=== PATIENT | male | born 1950 | race Two or more races ===

== ENCOUNTER 2023-07-08 13:31 | Inpatient (IN) | payer MEDICARE, OTHER ==
[~2023-07-08] VITALS: Ht 167.6 cm; Wt 58.5 kg
[2023-07-08 14:47] LABS: Basophils # (auto) 0 10 ^3/uL (0-0.2); Basophils % (auto) 0.1 % (0.0-2.0); Eosinophils # (auto) 0 10 ^3/uL (0-0.8); Eosinophils % (auto) 0.3 % (0.0-7.0); Hematocrit 37.5 % (41.0-53.0); Lymphocytes # (auto) 0.7 10 ^3/uL (0.4-5.4); Lymphocytes % (auto) 12.5 % (10.0-50.0); Mean Corpuscular Hemoglobin 29.3 pg (28.0-32.0); Mean Corpuscular Hgb Conc. 34.7 g/dL (32.0-36.0); Mean Corpuscular Volume 84.3 fL (80.0-100.0); Monocytes # (auto) 0.8 10 ^3/uL (0-1.3); Monocytes % (auto) 13.8 % (0.0-12.0); Neutrophils # (auto) 4.3 10 ^3/uL (1.6-8.6); Neutrophils % (auto) 73.3 % (37.0-80.0); Nucleated Red Blood Cells % 0.1 %; Red Blood Cells 4.45 10^6/uL (4.5-5.90); Red Cell Distribution Width 16.2 % (11.8-14.3); White Blood Cell 5.9 10^3/uL (4.4-10.8)
[2023-07-08 15:03] LABS: Albumin 3.1 g/dL (3.4-5.0); BUN/Creatinine Ratio 22.9 (10.0-20.0); Calcium 8.8 mg/dL (8.5-10.1); Potassium 3.3 mmol/L (3.5-5.1)
[2023-07-08 15:06] LABS: Bilirubin, Total 0.7 mg/dL (0.2-1.0); Total Protein 7.4 g/dL (6.4-8.2)
[2023-07-08] MEDS ORDERED: MORPHINE SULFATE 4 MG/ML SYR/VIAL IV ONE (15:30)
[2023-07-08] MEDS ORDERED: SODIUM CHLORIDE 0.9% 500 ML IVB ONE (15:30)
[2023-07-08] MEDS ORDERED: SODIUM CHLORIDE 0.9% 1,000 ML IV ONE (15:30)
[2023-07-08] MEDS ORDERED: METOCLOPRAMIDE HCL 5MG/ml INJ 2ml VIAL IV ONE (15:30)
[2023-07-08 15:57] LABS: INR 1.48 (0.9-1.15); Partial Thromboplastin Time 36.2 SEC (24.5-34.5); Prothrombin Time 15.1 sec (9.3-11.8)
[2023-07-08 16:58] LABS: Magnesium 2.3 mg/dL (1.6-2.6)
[2023-07-08] MEDS ORDERED: METOCLOPRAMIDE HCL 5MG/ml INJ 2ml VIAL IV PRN (17:00)
[2023-07-08] MEDS ORDERED: DOCUSATE SOD 100 MG CAP PO PRN (17:00)
[2023-07-08] MEDS ORDERED: ACETAMINOPHEN 325 MG TAB PO PRN (17:00)
[2023-07-08] MEDS: SODIUM CHLORIDE 0.9% 1,000 ML IV SCH (17:00)
[2023-07-08] MEDS ORDERED: POTASSIUM EFFERVESENT TAB 25 MEQ PO ONE (17:45)
[2023-07-08] MEDS: metroNIDAZOLE 500MG/100ML 100 ML IV SCH (18:05)
[2023-07-08 22:30] VITALS: PULSE 80; RESP 20; O2SAT 100
[2023-07-08] MEDS: MORPHINE SULFATE INJ 2 MG/ml SYRG IV PRN (22:37)
[2023-07-08] MEDS: ONDANSETRON HCL 4 MG/2 ML VIAL IV PRN (22:38)
[2023-07-09] MEDS: metroNIDAZOLE 500MG/100ML 100 ML IV SCH ×4 (03:29→11:23)
[2023-07-09 05:36] LABS: Potassium 3.5 mmol/L (3.5-5.1)
[2023-07-09 05:44] LABS: BUN/Creatinine Ratio 27.4 (10.0-20.0); Bilirubin, Total 0.7 mg/dL (0.2-1.0); Calcium 9.1 mg/dL (8.5-10.1); Magnesium 2.5 mg/dL (1.6-2.6); Total Protein 7.7 g/dL (6.4-8.2)
[2023-07-09 05:45] LABS: Basophils # (auto) 0 10 ^3/uL (0-0.2); Basophils % (auto) 0.1 % (0.0-2.0); Eosinophils # (auto) 0 10 ^3/uL (0-0.8); Eosinophils % (auto) 0.3 % (0.0-7.0); Hematocrit 37.2 % (41.0-53.0); Hemoglobin 12.7 g/dL (13.5-17.5); Lymphocytes # (auto) 0.8 10 ^3/uL (0.4-5.4); Lymphocytes % (auto) 13.9 % (10.0-50.0); Mean Corpuscular Hemoglobin 28.9 pg (28.0-32.0); Monocytes # (auto) 0.8 10 ^3/uL (0-1.3); Monocytes % (auto) 14.9 % (0.0-12.0); Neutrophils % (auto) 70.8 % (37.0-80.0); Nucleated Red Blood Cells % 0.1 %; Red Blood Cells 4.37 10^6/uL (4.5-5.90); Red Cell Distribution Width 16.2 % (11.8-14.3); White Blood Cell 5.6 10^3/uL (4.4-10.8)
[2023-07-09] MEDS: SODIUM CHLORIDE 0.9% 1,000 ML IV SCH (09:47)
[2023-07-09] MEDS ORDERED: cefTRIAXone 1GM/50ML D5W 50 ML IV ONE (12:00)
[2023-07-09] MEDS ORDERED: CAPE1TAB11 PO (15:17)
[2023-07-09 15:52] VITALS: BP 127/60; PULSE 72; RESP 17; TEMP 98.6; O2SAT 95
[2023-07-09] MEDS ORDERED: LOPE1TAB9 PO (16:14)
[2023-07-09] MEDS ORDERED: ZOFR4T PO (16:16)
[2023-07-09 16:17] VITALS: PULSE 73; RESP 14; O2SAT 98
[2023-07-09 20:00] VITALS: BP 133/63; PULSE 72; PULSE 78; PULSE 80; RESP 17; TEMP 97.6; O2SAT 98
[2023-07-09 22:00] VITALS: BP 133/63; PULSE 72; RESP 17; TEMP 97.6; O2SAT 98
[2023-07-10] VITALS (7 sets, daily range): BP systolic 119–145; BP diastolic 60–71; PULSE 66–82; RESP 12–18; TEMP 97.5–99.2; O2SAT 97–100
[2023-07-10] MEDS: SODIUM CHLORIDE 0.9% 1,000 ML IV SCH ×2 (02:20→22:53)
[2023-07-10] MEDS: HYDROcodone-ACET 5/325MG TAB PO PRN (07:49)
[2023-07-10] MEDS: cefTRIAXone 1GM/50ML D5W 50 ML IV SCH (09:17)
[2023-07-10] MEDS: metroNIDAZOLE 500MG/100ML 100 ML IV SCH ×2 (09:18→17:39)
[2023-07-10] MEDS: MORPHINE SULFATE INJ 2 MG/ml SYRG IV PRN (10:20)
[2023-07-10] MEDS: ONDANSETRON HCL 4 MG/2 ML VIAL IV PRN (19:41)
[2023-07-11] MEDS: MORPHINE SULFATE INJ 2 MG/ml SYRG IV PRN (00:29)
[2023-07-11] MEDS: metroNIDAZOLE 500MG/100ML 100 ML IV SCH ×2 (01:37→10:20)
[2023-07-11 05:00] VITALS: BP 121/70; PULSE 90; RESP 18; TEMP 97.8; O2SAT 100
[2023-07-11 07:30] VITALS: PULSE 75; RESP 20
[2023-07-11] MEDS: HYDROcodone-ACET 5/325MG TAB PO PRN (08:53)
[2023-07-11] MEDS: cefTRIAXone 1GM/50ML D5W 50 ML IV SCH (08:53)
[2023-07-11 09:00] VITALS: BP 155/75; PULSE 73; RESP 18; TEMP 97.8; O2SAT 99
[2023-07-11] MEDS: SODIUM CHLORIDE 0.9% 1,000 ML IV SCH (10:35)
[2023-07-11] MEDS ORDERED: MET500T PO (11:00)
[2023-07-11] MEDS ORDERED: LEVO500T91 PO (11:00)
[2023-07-11] MEDS ORDERED: ZOFR4T PO (11:00)
[2023-07-11 12:22] VITALS: TEMP 36.6
[2023-07-11 13:00] VITALS: BP 146/61; PULSE 68; RESP 18; TEMP 98.1; O2SAT 98
== END 2023-07-11 14:45 | disposition home or self-care (01) | DRG 389 ==
LOC: ER 13:31 → TELE 17:08 → TELE-WESTW 07-09 15:57
PROVIDERS: ADMIT Nurse Practitioner Family; ATTEND Family Medicine
DX: K56.7 Ileus, unspecified (principal); E44.0 Moderate protein-calorie malnutrition; R64 Cachexia; K52.9 Noninfective gastroenteritis and colitis, unspecified; K57.30 Diverticulosis of large intestine without perforation or abscess without bleeding; K80.20 Calculus of gallbladder without cholecystitis without obstruction; E87.6 Hypokalemia; E86.0 Dehydration; T45.1X5A Adverse effect of antineoplastic and immunosuppressive drugs, initial encounter; K76.9 Liver disease, unspecified; Z85.038 Personal history of other malignant neoplasm of large intestine; Z68.20 Body mass index [BMI] 20.0-20.9, adult; Z90.49 Acquired absence of other specified parts of digestive tract
CPT/HCPCS: 36415; 71046; 74176; 80053; 83690; 83735; 84484; 84550; 85025; 85610; 85730; 93005; G0378; J0696; J2405; J3490